=== PATIENT | female | born 1990 | race Two or more races ===

== ENCOUNTER 2025-03-25 11:10 | Observation (INO) | payer OTHER ==
[~2025-03-25] VITALS: Ht 162.6 cm; Wt 79.4 kg
[2025-03-25] MEDS ORDERED: TERBUTALINE SULFATE 1 MG/ML 1ML VIAL SC SCH (12:30)
--- NOTE | 2025-03-28 12:31 | DVHDS2 ---
Physician Discharge Progress N Final Diagnosis: dizziness 24wks Operations or Procedures: Operations or Procedures nst Condition on Discharge: Good Disposition: Home Discharge Instructions: Diet: Regular Activity: No Restrictions, As Tolerated Follow Up/Referral: pt encouraged to follow up with her primary OB. Medications: Pt refuses terbutaline, pt denies feeling contractions. Follow Up Care: Specialist: 2d Discharge Statement: "Patient was advised to return to the ER or call 911 if any headaches, dizziness, shortness of breath, chest pain, abdominal pain, bleeding, fevers, or worsening of medical condition. Patient was counseled about treatment plan, medications, possible side effects, patientverbalized understanding. All questions were answered to the best of my ability. This discharge took greater then 30 minutes in planning, reviewing documenta tion, counseling the patient, and discussing with other team members." Visit Coding OBGYN Date of Service: Mar 25, 2025 Billing Provider: TREVON MEDINA DO COUNTRY DIRECTOR Common Visit Codes: [id number] OBS CARE (HIGH) COUNTRY DIRECTOR Procedure Codes: 84587-95- NON-STRESS TEST TREVON MEDINA DO Mar 28, 2025 12:31
== END 2025-03-25 12:50 | disposition home or self-care (01) ==
LOC: LDRP 11:10 → UNDOADMOB 11:10 → LDRP 11:47 → UNDODISOB 12:50
PROVIDERS: ADMIT Obstetrics & Gynecology; ATTEND Obstetrics & Gynecology
DX: O26.892 Other specified pregnancy related conditions, second trimester (principal); R42 Dizziness and giddiness; Z3A.26 26 weeks gestation of pregnancy; Z98.890 Other specified postprocedural states; Z79.899 Other long term (current) drug therapy
CPT/HCPCS: 81002; 94760; G0378